=== PATIENT | male | born 1945 | race Caucasian/White ===

== ENCOUNTER 2022-05-20 15:11 | Emergency (ER) | payer MEDICARE, SELFPAY ==
[2022-05-20 15:15] VITALS: BP 147/92
[2022-05-20 15:17] VITALS: BP 147/92; PULSE 76; RESP 18; O2SAT 97; BMI 28.7
--- NOTE | 2022-05-20 15:37 | ED_ITS ---
HPI - General Adult General Chief complaint: Fall/Minor Trauma Stated complaint: fall, wrist injury, hit head Time Seen by Provider: 05/20/22 15:21 History of Present Illness HPI narrative: This 77-year-old male comes in for evaluation of his left wrist. About 4 hours prior to arrival he fell when he was going down 1 step onto some gravel. He fell onto his left outstretched hand and then rolled onto his right side. When he rolled onto his right he has an abrasion on his right forearm and did bump his head. He did not have loss of consciousness. He was able to get up and ambulate after this fall. He did not have much complaints initially and still does not complain of any headache. He does have increasing pain in his left wrist and that is the reason for which he comes. He states that he has a history of some TIAs and is taking some anticoagulation. He is not on Coumadin or the other new oral anticoagulants. Related Data Previous Rx's Medication Instructions Recorded hydrocodone 5 mg-acetaminophen 325 1 tab PO Q4-6H PRN pain #14 tabs 05/20/22 mg tablet Allergies Allergy/AdvReac Type Severity Reaction Status Date / Time No Known Drug Allergies Allergy Verified 05/20/22 15:16 Review of Systems Status of ROS: Reports: 10 or more systems reviewed and unremarkable except as noted in History and below Narrative: Constitutional: No fevers, no weight gain or loss. Eyes: No discharge. No vision changes. HENT: No congestion, no sore throat, no ear pain. Cardiovascular: No chest pain, no palpitations. Respiratory: No shortness of breath, no wheezes, no cough. Gastrointestinal: No abdominal pain, no vomiting, no diarrhea. Genitourinary: No dysuria, no hematuria. Musculoskeletal: Left wrist pain after a fall. Skin: No rashes, no pruritis. Neurological: No dizziness, weakness, sensory change, speech change. Endo/Heme/Allergies: No bruising or bleeding. No polydipsia. Pysch: no suicidality, no anxiety, no insomnia. All other systems reviewed and are negative. [facility] Social History Smoking Status: Never smoker Do you use any of these nicotine containing products: None Second hand tobacco smoke exposure: No How often do you have a drink containing alcohol: 2-3 times a week How many standard drinks containing alcohol do you have on a typical day: 1 or 2 How often do you have six or more drinks on one occasion: Never AUDIT-C Alcohol total score: 3 Non-prescribed substance use: denies use Exam Narrative: Exam Narrative: Constitutional: Well-developed, well-nourished, no acute distress. HEENT: Superficial abrasion on the right side of his head with some small amount of ecchymosis. Neck: Normal range of motion. Nontender. Supple. Heart: Regular. No murmurs. Normal rate. Intact distal pulses. Lungs: Clear to auscultation. No chest discomfort. No wheezes, rhonchi, or rales. Abdomen: Normal bowel sounds. Nontender. No rebound tenderness. Genitalia: Deferred. Back: No midline tenderness. Normal range of motion. Extremities: The right forearm has some bruising but no laceration. Left wrist has diffuse tenderness and swelling but no obvious sign of deformity. Range of motion is decreased somewhat due to pain. Skin: Intact. No rash. Warm. No erythema or pallor. Neurologic: No altered sensation. No weakness. Alert and oriented. Psychiatric: No suicidality. No anxiety or depression. No insomnia. Nursing notes and vitals signs are reviewed. Const: Vital Signs, click to edit/add: Vital Signs - 24 hr 05/20/22 15:17 Pulse Rate [Pulse Oximeter] 76 Respiratory Rate 18 Blood Pressure [Ri ght Upper Arm] 147/92 H Pulse Oximetry 97 Oxygen Delivery Me thod Room Air Course Vital Signs Vital signs: Initial Vital Signs Temperature Source Temporal Artery Scan 05/20/22 15:17 Pulse Rate 76 05/20/22 15:17 Pulse Rhythm 05/20/22 15:17 Respiratory Rate 18 05/20/22 15:17 Blood Pressure 147/92 H 05/20/22 15:17 Blood Pressure Mean 110 05/20/22 15:17 Blood Pressure Position Supine 05/20/22 15:17 Pulse Oximetry 97 05/20/22 15:17 Oxygen Delivery Method 05/20/22 15:17 Vital Signs Pulse Rate 76 05/20/22 15:17 Respiratory Rate 18 05/20/22 15:17 Blood Pressure 147/92 H 05/20/22 15:17 Pulse Oximetry 97 05/20/22 15:17 Oxygen Delivery Method 05/20/22 15:17 Pulse Rate 76 05/20/22 15:17 Respiratory Rate 18 05/20/22 15:17 Blood Pressure 147/92 H 05/20/22 15:17 Pulse Oximetry 97 05/20/22 15:17 Oxygen Delivery Method 05/20/22 15:17 Medical Decision Making MDM Narrative Medical decision making narrative: This 77-year-old male fell onto his left outstretched hand several hours ago. X-ray imaging shows normal appearing ulna and radius but he does have suspicion of triquetral fracture. The patient has increasing discomfort and did receive an intramuscular injection of morphine 6 mg. He was placed in a volar splint using Ortho Glass material. Arrangements are made for follow-up appointment with orthopedic clinic. The patient also received a prescription for some tablets of [place]. Imaging Data XR L Wrist: Radiologist's impression: Lateral image demonstrates a dorsal fracture in the carpus most consistent with a fracture of the triquetrum. No other fracture and no malalignment. Discharge Plan Discharge Clinical Impression: Fracture of wrist Patient Disposition: Home, Self-Care Condition: Stable Instructions: Wrist Fracture in Adults (ED) Additional Instructions: Wear splint and use medications as needed and directed. Follow up with orthopedic clinic as scheduled. Prescriptions: New hydrocodone-acetaminophen 5-325 mg tablet 1 tab PO Q4-6H PRN (Reason: pain) Qty: 14 0RF Follow Up/Referrals: Gordo Beasley MD [Primary Care Provider] - Stand Alone Forms: Support Your App Info Instructions
--- NOTE | 2022-05-20 15:37 | CRLHL7_ITS ---
For Patients: As a result of the Cures Act, medical imaging exams and procedure reports are released immediately into your electronic medical record. You may view this report before your referring provider. If you have questions, please contact your health care provider. Indication: Trauma, fall. Technique: Left wrist 3 views. Comparison: None. Findings/Impression: Bones: Lateral image demonstrates a dorsal fracture in the carpus most consistent with a fracture of the triquetrum. No other fracture and no malalignment. Joint spaces: Mild degenerative changes in the lateral carpus. Soft tissues: Generalized soft tissue swelling. Dictated by Gilberto Cody MD @ 05/20/2022 4:09:53 PM (Electronically Signed)
[2022-05-20] MEDS: MORPHINE 10 MG/ML inj 6 MG IM (16:39)
[2022-05-20 16:40] VITALS: BP 128/80; PULSE 73; O2SAT 96
== END 2022-05-20 16:55 | disposition home or self-care (01) ==
PROVIDERS: Emergency Provider Emergency Medicine Emergency Medical Services; PCP Family Medicine
DX: S62.115A Nondisplaced fracture of triquetrum [cuneiform] bone, left wrist, initial encounter for closed fracture (principal); W01.0XXA Fall on same level from slipping, tripping and stumbling without subsequent striking against object, initial encounter
CPT/HCPCS: 29125; 73110; 96372; 99283; 99284; J2270

== ENCOUNTER 2022-11-25 11:35 | Outpatient (RCR) | payer MEDICARE, SELFPAY ==
--- NOTE | 2023-03-30 12:36 | ONC.NURNOTE ---
Addendum entered by Elva Sanchez RN 03/31/23 10:05: orders received from Dr Fulton to hold hydrea while on cruise due to increase risk of neutropenia patients ANC is 1.7 preference is to check labs weekly for the next month, since patient will be on a cruise until 04/23/23-he was informed to hold the hydrea states understanding lab will be rechecked as soon as he returns orders to be faxed to [facility] Original Note: patient stopped by today after getting labs drawn at the [facility] noted change in WBC/ANC/plts when dose confirmed- it was discovered that the patient has been incorrectly taking his hydrea increase dose last month to 1000mg (2 hydrea) daily, for plts>600 however patient has been taking 2 hydrea M-F and 2 hydrea BID on Tuesday and Tuesday (1000mg BID) was with patient today and reports that she told him that he was taking it incorrectly on the weekend, patient did not adjust his schedule according to dosing reviewed today with teach back used leaving on cruise tomorrow for 3 weeks and will have access to email will email patient dose and lab schedule also needs refills for hydrea with a 3 month supply last refill for 1 month was not filled insurance only allows 3 month fill according to next lab orders will need to be faxed to [facility] [place]/leonila
--- NOTE | 2023-05-24 12:50 | ONC.NURNOTE ---
labs noted 1 month since restarting Hydrea at 500mg M-F and 1000 mg Sat, Lidya email sent to patient noted creat continues to edge up encouraged to check in with Dr Beasley and to stay hydrated dose continues lab due in 4 weeks he gets all labs at [facility] [place] faxed last month
== END 2023-05-24 23:59 | disposition home or self-care (01) ==
LOC: CCIC 11:35
PROVIDERS: PCP Family Medicine; Visit Provider Internal Medicine Hematology & Oncology
DX: D47.3 Essential (hemorrhagic) thrombocythemia (principal)
CPT/HCPCS: 99441

== ENCOUNTER 2023-11-29 13:19 | Outpatient (RCR) | payer MEDICARE, SELFPAY ==
--- NOTE | 2023-07-18 11:31 | ONC.NURNOTE ---
Lab results emailed to patient Patient going on a cruise 09/03-09/23 and will get another CBC prior to his cruise on 09/01/23 order faxed to [place] lab
--- NOTE | 2023-11-04 14:38 | ONC.NURNOTE ---
Request from [facility] for orders to be faxed; orders for CBC, CMP and LDH faxed to [phone].
--- NOTE | 2023-11-10 14:04 | ONC.NURNOTE ---
Appt moved out 2 weeks per office request. patient will be due for another lab at [facility] before appt lab 11/28 Dr Mcneill 11/29
--- NOTE | 2024-01-03 15:16 | ONC.NURNOTE ---
Lab results from 01/02/24 at [facility] reviewed by Dr Mcneill as stable- called to Adam no dose changes- continue 500mg M-F and 1000 mg Sat and Sun leaving on cruise next lab due early March
== END 2024-05-27 23:59 | disposition home or self-care (01) ==
LOC: CCIC 13:19
PROVIDERS: PCP Family Medicine; Visit Provider Internal Medicine Hematology & Oncology
DX: D47.3 Essential (hemorrhagic) thrombocythemia (principal)
CPT/HCPCS: 99213; 99214; G0463

== ENCOUNTER 2023-12-23 14:18 | Emergency (ER) | payer MEDICARE, SELFPAY ==
[2023-12-23 14:24] VITALS: BP 133/85; PULSE 103; TEMP 36.2; O2SAT 99; BMI 25.8
--- NOTE | 2023-12-23 14:37 | ED.NURSE ---
TDap 01/14/2021
--- NOTE | 2023-12-23 15:03 | ED.WOUNDLAC ---
HPI - Wound/Laceration General Time Seen by Provider: 15:00 Date Seen: 12/23/23 Chief Complaint: Laceration/Wound Stated Complaint: R hand lac, patch of skin peeled off Time Seen by Provider: 12/23/23 14:32 Source: patient, family, RN notes reviewed and old records reviewed Mode of arrival: ambulatory Limitations: no limitations History of Present Illness HPI narrative: 78-year-old left-handed male comes in today with laceration of the right hand. Patient was working on a tractor and a wrench slipped, he sustained injury to the right hand and the right forearm. This happened earlier today, patient had difficulty stopping the bleeding and so came to the emergency department Related Data Home Medications Medication Instructions Recorded Confirmed amlodipine 5 mg tablet mg PO 11/29/23 11/29/23 aspirin 25 mg-dipyridamole 200 mg 1 cap PO QHS 11/29/23 11/29/23 capsule,ext.release 12 hr multiphase atorvastatin 40 mg tablet mg PO 11/29/23 11/29/23 famotidine 20 mg tablet mg PO 11/29/23 11/29/23 lisinopril 40 mg tablet mg PO 11/29/23 11/29/23 Previous Rx's Medication Instructions Recorded hydroxyurea 500 mg capsule See Rx Instructions PO .COMPLEX 12/05/23 thrombocythemia #120 caps Allergies Allergy/AdvReac Type Severity Reaction Status Date / Time No Known Drug Allergies Allergy Verified 11/29/23 13:55 [facility] Medical History (Updated 12/23/23 @ 15:06 by Ari Martin MD) Essential (hemorrhagic) thrombocythemia ?D47.3 - Essential (hemorrhagic) thrombocythemia (ICD-10) Stroke ?I63.9 - Cerebral infarction, unspecified (ICD-10) Family History (Updated 05/21/22 @ 11:31 by Magi Myers ~ [facility]) Father Stomach cancer Social History Smoking Status: Former smoker Do you use any of these nicotine containing products: None Second hand tobacco smoke exposure: No How often do you have a drink containing alcohol: 2-3 times a week How many standard drinks containing alcohol do you have on a typical day: 1 or 2 How often do you have six or more drinks on one occasion: Never AUDIT-C Alcohol total score: 3 Non-prescribed substance use: denies use Exam Narrative: Exam Narrative: General: well nourished , NAD Head: Atraumatic and normocephalic ENT: External ears and external nose are normal Eyes: Conjunctiva clear, pupils are equal reactive, external ocular motions are intact Neck: Full spontaneous range of motion of the neck Lungs: No respiratory distress Musculoskeletal: No tenderness or deformity Neurologic: No gross focal neurologic deficits Skin: 4 cm curvilinear scan tear on the dorsum of the right hand between the thumb and index metacarpals. 1 cm superficial laceration of the right extensor for Psych: Mood and affect are appropriate Const: Vital Signs, click to edit/add: Vital Signs - 24 hr 12/23/23 14:24 Temperature 97.1 F L Pulse Rate [Pulse Oximeter] 103 H Blood Pressure [Ri ght Upper Arm] 133/85 Pulse Oximetry 99 Oxygen Delivery Me thod Room Air Course Course ED Course: Patient seen and examined, prior records are reviewed. Patient presents today with a skin tear of the right hand and a small laceration of the right forearm. These were cleansed with normal saline, no foreign body seen. Dermabond applied to both areas and dressing applied. Discussed wound care and patient is stable for discharge Vital Signs Vital signs: Initial Vital Signs Temperature 97.1 F L 12/23/23 14:24 Temperature Source Temporal Artery Scan 12/23/23 14:24 Pulse Rate 103 H 12/23/23 14:24 Blood Pressure 133/85 12/23/23 14:24 Blood Pressure Mean 101 12/23/23 14:24 Blood Pressure Position Sitting 12/23/23 14:24 Pulse Oximetry 99 12/23/23 14:24 Oxygen Delivery Method Room Air 12/23/23 14:24 Vital Signs Temperature 97.1 F L 12/23/23 14:24 Pulse Rate 103 H 12/23/23 14:24 Blood Pressure 133/85 12/23/23 14:24 Pulse Oximetry 99 12/23/23 14:24 Oxygen Delivery Method Room Air 12/23/23 14:24 Temperature 97.1 F L 12/23/23 14:24 Pulse Rate 103 H 12/23/23 14:24 Blood Pressure 133/85 12/23/23 14:24 Pulse Oximetry 99 12/23/23 14:24 Oxygen Delivery Method Room Air 12/23/23 14:24 Discharge Plan Discharge Clinical Impression: Skin tear of right hand without complication, Forearm laceration Condition: Stable Instructions: Skin Adhesive Care (ED) Activity Level: Activity as Tolerated Discharge Diet: Regular Prescriptions: No Action lisinopril 40 mg tablet PO amlodipine 5 mg tablet PO famotidine 20 mg tablet PO atorvastatin 40 mg tablet PO aspirin-dipyridamole 25-200 mg capsule, ER multiphase 12 hr 1 cap PO QHS hydroxyurea 500 mg capsule See Rx Instructions PO .COMPLEX Qty: 120 1RF Rx Instructions: take 1 tab (500mg) -. Take 2 tabs (1000mg) Tuesday and Tuesday. Follow Up/Referrals: Gordo Beasley MD [Primary Care Provider] - Stand Alone Forms: [employer] Info Instructions
== END 2023-12-23 15:37 | disposition home or self-care (01) ==
LOC: ED 15:18
PROVIDERS: Emergency Provider Family Medicine; PCP Family Medicine
DX: S61.411A Laceration without foreign body of right hand, initial encounter (principal); S51.811A Laceration without foreign body of right forearm, initial encounter; W19.XXXA Unspecified fall, initial encounter
CPT/HCPCS: 12002; 99283

== ENCOUNTER 2024-04-24 13:45 | Outpatient (RCR) | payer MEDICARE, SELFPAY ==
--- NOTE | 2024-05-15 13:04 | ONC.NURNOTE ---
Addendum entered by Elva Sanchez RN 05/29/24 14:09: RESULTS GIVEN VIA EMAIL NO DOSE CHANGE NEXT LAB DUE IN OCT Original Note: May and Jul lab orders faxed to [facility] patient was emailed with reminder RX hydrea refilled by Dr Mcneill today
== END 2024-06-01 15:49 | disposition home or self-care (01) ==
PROVIDERS: PCP Family Medicine; Visit Provider Podiatrist
DX: M21.371 Foot drop, right foot (principal); R20.0 Anesthesia of skin; Z51.89 Encounter for other specified aftercare
CPT/HCPCS: 97110; 97140; 97161

== ENCOUNTER 2024-11-21 08:45 | Outpatient (RCR) | payer MEDICARE, SELFPAY ==
[2024-07-11 11:58] LABS: Basophils Absolute Auto 0.06 K/uL (0.00-0.30); Basophils Percent Auto 1.2 % (0.0-3.0); Eosinophils Absolute Auto 0.01 K/uL (0.00-0.50); Eosinophils Percent Auto 0.2 % (0.0-7.0); Hematocrit 33.2 % (37.0-53.0); Hemoglobin* 10.9 gm/dL (13.5-17.5); Immature Granulocytes Abs Auto 0.01 K/uL (0.00-0.30); Immature Granulocytes Pct Auto 0.2 %; Lymphocytes Percent Auto 11.2 % (20-44); Mean Corpuscular HGB Conc 33 gm/dL (32-36); Mean Corpuscular Hemoglobin 38 pg (26-34); Mean Corpuscular Volume 114 fL (80-100); Monocytes Percent Auto 6.4 % (0.0-11.0); Neutrophils Percent Auto 80.8 % (42.0-72.0); Platelet Count* 333 K/uL (140-440); RDW Coefficient of Variation % 13.7 % (11.5-15.5); Red Blood Count 2.91 m/uL (4.30-5.90); White Blood Count* 4.82 K/uL (4.50-11.00)
[2024-07-11 11:59] LABS: Slide Review Reflex No
[2024-11-21 09:20] LABS: Lactate Dehydrogenase* 216 U/L (120-246)
== END 2025-01-07 23:59 | disposition home or self-care (01) ==
LOC: CCIC 08:45
PROVIDERS: PCP Family Medicine; Referring Provider Family Medicine; Visit Provider Internal Medicine Hematology & Oncology
DX: D47.3 Essential (hemorrhagic) thrombocythemia (principal)
CPT/HCPCS: 36415; 83615; 85025; 99213; G0463

== ENCOUNTER 2025-08-13 13:15 | Outpatient (RCR) | payer MEDICARE, SELFPAY ==
[2025-02-19 08:23] LABS: Hematocrit* 28.5 % (37.0-53.0); Hemoglobin* 9.2 gm/dL (13.5-17.5); Immature Granulocytes Pct Auto 1.1 %; Mean Corpuscular HGB Conc 32 gm/dL (32-36); Mean Corpuscular Hemoglobin 34 pg (26-34); Mean Corpuscular Volume 106 fL (80-100); RDW Coefficient of Variation % 14.4 % (11.5-15.5); Red Blood Count* 2.68 m/uL (4.30-5.90); White Blood Count* 3.59 K/uL (4.50-11.00)
[2025-02-19 08:42] LABS: Immature Granulocytes Abs Auto 0.00 K/uL (0.00-0.30); Lymphocytes Absolute Auto 0.50 K/uL (0.90-2.90); Slide Review Reflex No
[2025-02-19 08:49] LABS: Albumin* 4.2 g/dL (3.3-5.0); Chloride* 107 mmol/L (96-114); Sodium* 140 mmol/L (135-149)
[2025-02-19 08:50] LABS: Potassium* 4.6 mmol/L (3.6-5.1)
[2025-02-19 08:52] LABS: Alanine Aminotransferase* 18 U/L (4-50); Alkaline Phosphatase* 56 U/L (40-150); Anion Gap 6 mEq/L (7-15); Aspartate Amino Transferase* 31 U/L (12-35); Bilirubin Total* 0.7 mg/dL (0.1-1.5); Blood Urea Nitrogen* 26 mg/dL (7-30); Calcium* 9.3 mg/dL (8.4-10.6); Carbon Dioxide* 27 mmol/L (20-32); Creatinine* 1.4 mg/dL (0.5-1.5); Estimated Glomerular Filt Rate 51 ml/min; Glucose* 109 mg/dL (60-115); Total Protein* 6.6 g/dL (6.0-8.3)
[2025-02-27 09:30] LABS: Hematocrit* 29.0 % (37.0-53.0); Hemoglobin* 9.3 gm/dL (13.5-17.5); Immature Granulocytes Abs Auto 0.05 K/uL (0.00-0.30); Immature Granulocytes Pct Auto 1.1 %; Mean Corpuscular HGB Conc 32 gm/dL (32-36); Mean Corpuscular Hemoglobin 34 pg (26-34); Mean Corpuscular Volume 107 fL (80-100); RDW Coefficient of Variation % 14.6 % (11.5-15.5); Red Blood Count* 2.72 m/uL (4.30-5.90); White Blood Count* 4.65 K/uL (4.50-11.00)
[2025-02-27 09:36] LABS: Lymphocytes Absolute Auto 0.50 K/uL (0.90-2.90)
[2025-02-27 09:37] LABS: Slide Review Reflex No
--- NOTE | 2025-02-27 14:05 | ONC.NURNOTE ---
Pt at [facility] for labs today. reviewed results. Orders obtained for occult blood stool. Pt notified. He came to [facility] for supplies to collect a sample at home. He will bring back the sample when able. Orders in. Questions answered as able.
[2025-02-28 08:37] LABS: Fecal Occult Blood* Negative (Negative)
[2025-03-18 14:09] LABS: Hematocrit* 29.1 % (37.0-53.0); Hemoglobin* 9.3 gm/dL (13.5-17.5); Immature Granulocytes Abs Auto 0.02 K/uL (0.00-0.30); Immature Granulocytes Pct Auto 0.4 %; Mean Corpuscular HGB Conc 32 gm/dL (32-36); Mean Corpuscular Hemoglobin 33 pg (26-34); Mean Corpuscular Volume 104 fL (80-100); RDW Coefficient of Variation % 15.3 % (11.5-15.5); Red Blood Count* 2.81 m/uL (4.30-5.90); White Blood Count* 4.62 K/uL (4.50-11.00)
[2025-03-18 14:16] LABS: Lymphocytes Absolute Auto 0.50 K/uL (0.90-2.90); Slide Review Reflex No
[2025-03-18 14:26] LABS: Iron* 110 ug/dL (49-181)
[2025-03-18 14:35] LABS: Percent Iron Saturation 43 % (20-50); Total Iron Binding Capacity 257 ug/dL (261-462)
[2025-03-18 15:16] LABS: Vitamin B12* 624 pg/mL (243-894)
[2025-03-19 08:53] LABS: Folate, Serum 19.5 ng/mL (>=5.9)
[2025-04-19 08:55] LABS: Hematocrit* 31.1 % (37.0-53.0); Hemoglobin* 9.6 gm/dL (13.5-17.5); Immature Granulocytes Pct Auto 0.7 %; Mean Corpuscular HGB Conc 31 gm/dL (32-36); Mean Corpuscular Hemoglobin 32 pg (26-34); Mean Corpuscular Volume 103 fL (80-100); RDW Coefficient of Variation % 16.3 % (11.5-15.5); Red Blood Count* 3.02 m/uL (4.30-5.90); White Blood Count* 4.43 K/uL (4.50-11.00)
[2025-04-19 08:58] LABS: Immature Granulocytes Abs Auto 0.00 K/uL (0.00-0.30); Lymphocytes Absolute Auto 0.60 K/uL (0.90-2.90); Slide Review Reflex No
--- NOTE | 2025-04-23 13:58 | ONC.NURNOTE ---
labs reviewed by dr Mcneill and called to Bill No dose change- contnue hydrea at 1000mg S,S and 500 mg M-Tuesday repeat CBC 05/06- watching platelets
[2025-05-06 10:27] LABS: Hematocrit* 30.6 % (37.0-53.0); Hemoglobin* 9.8 gm/dL (13.5-17.5); Immature Granulocytes Abs Auto 0.02 K/uL (0.00-0.30); Immature Granulocytes Pct Auto 0.4 %; Mean Corpuscular HGB Conc 32 gm/dL (32-36); Mean Corpuscular Hemoglobin 32 pg (26-34); Mean Corpuscular Volume 99 fL (80-100); RDW Coefficient of Variation % 16.2 % (11.5-15.5); Red Blood Count* 3.09 m/uL (4.30-5.90); White Blood Count* 5.18 K/uL (4.50-11.00)
[2025-05-06 10:30] LABS: Lymphocytes Absolute Auto 0.40 K/uL (0.90-2.90); Slide Review Reflex No
[2025-05-20 10:41] LABS: Hematocrit* 30.6 % (37.0-53.0); Hemoglobin* 9.5 gm/dL (13.5-17.5); Immature Granulocytes Abs Auto 0.04 K/uL (0.00-0.30); Immature Granulocytes Pct Auto 0.8 %; Mean Corpuscular HGB Conc 31 gm/dL (32-36); Mean Corpuscular Hemoglobin 31 pg (26-34); Mean Corpuscular Volume 99 fL (80-100); RDW Coefficient of Variation % 16.6 % (11.5-15.5); Red Blood Count* 3.10 m/uL (4.30-5.90); White Blood Count* 4.74 K/uL (4.50-11.00)
[2025-05-20 10:49] LABS: Lymphocytes Absolute Auto 0.70 K/uL (0.90-2.90); Slide Review Reflex No
[2025-05-20 11:20] LABS: Albumin* 4.2 g/dL (3.3-5.0); Chloride* 108 mmol/L (96-114); Sodium* 139 mmol/L (135-149)
[2025-05-20 11:21] LABS: Potassium* 4.4 mmol/L (3.6-5.1)
[2025-05-20 11:23] LABS: Alanine Aminotransferase* 15 U/L (4-50); Alkaline Phosphatase* 64 U/L (40-150); Anion Gap 8 mEq/L (7-15); Aspartate Amino Transferase* 29 U/L (12-35); Bilirubin Total* 0.6 mg/dL (0.1-1.5); Blood Urea Nitrogen* 26 mg/dL (7-30); Carbon Dioxide* 23 mmol/L (20-32); Creatinine* 1.2 mg/dL (0.5-1.5); Est. Creatinine Clearance* 49.10; Estimated Glomerular Filt Rate 61 ml/min
[2025-05-20 11:24] LABS: Calcium* 9.3 mg/dL (8.4-10.6); Glucose* 102 mg/dL (60-115); Total Protein* 6.9 g/dL (6.0-8.3)
[2025-06-25 08:46] LABS: Hematocrit* 29.5 % (37.0-53.0); Hemoglobin* 9.1 gm/dL (13.5-17.5); Immature Granulocytes Pct Auto 1.4 %; Mean Corpuscular HGB Conc 31 gm/dL (32-36); Mean Corpuscular Hemoglobin 30 pg (26-34); Mean Corpuscular Volume 97 fL (80-100); RDW Coefficient of Variation % 18.0 % (11.5-15.5); Red Blood Count* 3.03 m/uL (4.30-5.90); White Blood Count* 4.17 K/uL (4.50-11.00)
[2025-06-25 08:49] LABS: Immature Granulocytes Abs Auto 0.10 K/uL (0.00-0.30); Lymphocytes Absolute Auto 0.60 K/uL (0.90-2.90); Slide Review Reflex No
--- NOTE | 2025-06-26 11:12 | ONC.NURNOTE ---
lab results reviewed by Dr Mcneill and called to [facility] noted Hg reports no signs of bleeding or change in his stool he was out of town recently and did not take his pills for 3-4 days continues on the iron and Vit B12 leaving on a cruise in 2 weeks next appts scheduled with DR Mcneill and lab
[2025-08-05] VITALS (8 sets, daily range): BP systolic 109–133; BP diastolic 64–85; PULSE 73–84; RESP 16–18; TEMP 36.1–36.4; O2SAT 97–100
[2025-08-05 09:11] LABS: Hematocrit* 24.1 % (37.0-53.0); Immature Granulocytes Pct Auto 1.5 %; Mean Corpuscular HGB Conc 31 gm/dL (32-36); Mean Corpuscular Hemoglobin 30 pg (26-34); Mean Corpuscular Volume 98 fL (80-100); RDW Coefficient of Variation % 19.1 % (11.5-15.5); Red Blood Count* 2.47 m/uL (4.30-5.90); White Blood Count* 4.13 K/uL (4.50-11.00)
[2025-08-05 09:19] LABS: Immature Granulocytes Abs Auto 0.10 K/uL (0.00-0.30)
[2025-08-05 09:20] LABS: Hemoglobin* 7.4 gm/dL (13.5-17.5); Lymphocytes Absolute Auto 0.70 K/uL (0.90-2.90); Slide Review Reflex No
[2025-08-05 09:22] LABS: Albumin* 4.0 g/dL (3.3-5.0); Chloride* 106 mmol/L (96-114); Potassium* 4.8 mmol/L (3.6-5.1); Sodium* 139 mmol/L (135-149)
[2025-08-05 09:25] LABS: Alanine Aminotransferase* 15 U/L (4-50); Alkaline Phosphatase* 68 U/L (40-150); Anion Gap 8 mEq/L (7-15); Aspartate Amino Transferase* 25 U/L (12-35); Bilirubin Total* 0.5 mg/dL (0.1-1.5); Blood Urea Nitrogen* 20 mg/dL (7-30); Carbon Dioxide* 25 mmol/L (20-32); Creatinine* 1.3 mg/dL (0.5-1.5); Est. Creatinine Clearance* 45.32; Estimated Glomerular Filt Rate 56 ml/min; Total Protein* 7.2 g/dL (6.0-8.3)
[2025-08-05 09:26] LABS: Calcium* 9.3 mg/dL (8.4-10.6); Glucose* 115 mg/dL (60-115)
[2025-08-08 09:53] LABS: Fecal Occult Blood* Negative (Negative)
[2025-08-13 13:10] LABS: Hematocrit* 31.7 % (37.0-53.0); Hemoglobin* 9.8 gm/dL (13.5-17.5); Immature Granulocytes Pct Auto 0.5 %; Mean Corpuscular HGB Conc 31 gm/dL (32-36); Mean Corpuscular Hemoglobin 30 pg (26-34); Mean Corpuscular Volume 96 fL (80-100); RDW Coefficient of Variation % 17.8 % (11.5-15.5); Red Blood Count* 3.29 m/uL (4.30-5.90); White Blood Count* 4.19 K/uL (4.50-11.00)
[2025-08-13 13:19] LABS: Immature Granulocytes Abs Auto 0.00 K/uL (0.00-0.30); Lymphocytes Absolute Auto 0.70 K/uL (0.90-2.90); Slide Review Reflex No
== END 2025-08-18 23:59 | disposition home or self-care (01) ==
LOC: CCIC 13:15
PROVIDERS: Clinical Nurse Specialist; PCP Family Medicine; Referring Provider Family Medicine; Visit Provider Internal Medicine Hematology & Oncology
DX: D47.3 Essential (hemorrhagic) thrombocythemia (principal); D64.9 Anemia, unspecified; Z79.64 Long term (current) use of myelosuppressive agent; Z79.02 Long term (current) use of antithrombotics/antiplatelets
CPT/HCPCS: 36415; 36430; 80053; 82270; 82607; 82668; 82728; 82746; 83540; 83550; 83615; 85025; 86850; 86900; 86901; 86922; 99214; G0463; P9016